=== PATIENT | female | born 1980 | race Two or more races ===

== ENCOUNTER → 2019-06-12 | Outpatient (CLI) | payer OTHER | END | disposition home or self-care (01) | LOC: PRENATAL 13:00 | DX: O26.891 Other specified pregnancy related conditions, first trimester (principal); O36.80X0 Pregnancy with inconclusive fetal viability, not applicable or unspecified; O09.511 Supervision of elderly primigravida, first trimester ==

== ENCOUNTER → 2019-07-24 | Outpatient (CLI) | payer OTHER | END | disposition home or self-care (01) | LOC: LAB 06-28 10:07 → PRENATAL 11:00 | DX: O35.3XX1 Maternal care for (suspected) damage to fetus from viral disease in mother, fetus 1 (principal); O09.512 Supervision of elderly primigravida, second trimester ==

== ENCOUNTER → 2019-10-09 | Outpatient (CLI) | payer OTHER | END | disposition home or self-care (01) | LOC: PRENATAL 09:00 | DX: O26.843 Uterine size-date discrepancy, third trimester (principal); O09.523 Supervision of elderly multigravida, third trimester ==

== ENCOUNTER 2019-11-25 11:15 | Inpatient (IN) | payer OTHER ==
[~2019-11-25] VITALS: Ht 157.5 cm; Wt 86.6 kg
[2019-12-16] MEDS ORDERED: PRENATAL 19 TA1 EACH PO (10:43)
[2019-12-16] MEDS ORDERED: FE C PLUS TABL1 EACH PO (10:44)
== END 2019-12-18 11:49 | disposition home or self-care (01) | DRG 807 ==
LOC: LDR 12-04 11:15 → SURG-SUITE 12-16 10:31 → LDR 12-16 10:31 → SURG-SUITE 12-16 18:01 → LDR 12-18 11:15 → SURG-SUITE 12-18 11:49
PROVIDERS: ADMIT Specialist
PROC: 10E0XZZ Delivery of Products of Conception, External Approach (ICD-10-PCS; principal; 2019-12-16)
PROC: 0W8NXZZ Division of Female Perineum, External Approach (ICD-10-PCS; 2019-12-16)
PROC: 0UQGXZZ Repair Vagina, External Approach (ICD-10-PCS; 2019-12-16)
PROC: 4A1HXCZ Monitoring of Products of Conception, Cardiac Rate, External Approach (ICD-10-PCS; 2019-12-16)
DX: O71.4 Obstetric high vaginal laceration alone (principal); Z37.0 Single live birth; Z3A.39 39 weeks gestation of pregnancy